=== PATIENT | female | born 1940 | race Native Hawaiian/Other Pacific Islander ===

== ENCOUNTER 2020-06-05 11:58 | Emergency (ER) | payer OTHER ==
[~2020-06-05] VITALS: Ht 142.2 cm; Wt 88.5 kg
[2020-06-05 13:57] LABS: URINE BILIRUBIN NEGATIVE (Negative); URINE BLOOD TRACE (Negative); URINE CLARITY CLEAR; URINE COLOR YELLOW; URINE GLUCOSE-RANDOM* NEGATIVE (Negative); URINE KETONES NEGATIVE (Negative); URINE LEUKOCYTES-REFLEX NEGATIVE (Negative); URINE NITRITE-REFLEX NEGATIVE (Negative); URINE PROTEIN (DIPSTICK) 2+ (Negative); URINE SPECIFIC GRAVITY 1.025 (1.005-1.035); URINE UROBILINOGEN 0.2 E.U./dl (0.2-1.0)
[2020-06-05 14:15] LABS: SQUAMOUS 0-3 Few /LPF (0-3)
[2020-06-05 14:16] LABS: BACTERIA-REFLEX None Seen /HPF (None Seen); CASTS None Seen /LPF (None Seen); CRYSTALS None Seen /LPF (None Seen); URINE RBC None Seen /HPF (0-2); URINE WBC-REFLEX 0-5 Rare /HPF (0-5)
[2020-06-05 15:49] LABS: HEMATOCRIT 42.1 % (37.0-47.0); HEMOGLOBIN 14.1 gm/dL (12.0-15.0); MCH 28.1 pg (26.0-34.0); MCHC 33.6 g/dL (28.0-37.0); MCV 83.8 fL (80.0-100.0); PLATELET COUNT 291 thou/uL (150-400); RBC 5.03 mil/uL (4.20-5.00); RDW 13.8 % (10.5-14.5); WBC 9.3 thou/uL (4.0-11.0)
[2020-06-05 16:01] LABS: CALCIUM 9.7 mg/dL (8.5-10.1)
[2020-06-05 16:17] LABS: ABSOLUTE NEUTROPHILS 5.8 thou/uL (1.4-8.2)
[2020-06-05] MEDS ORDERED: ULTRAM 50MG TAB50 MG PO (16:32)
[2020-06-05] MEDS ORDERED: MEDROLDOSEPACK PO (16:44)
[2020-06-05 17:15] VITALS: BP 183/73
== END 2020-06-05 17:16 | disposition home or self-care (01) ==
LOC: ER 11:58
PROVIDERS: Emergency Medicine
DX: M25.552 Pain in left hip (principal); M25.562 Pain in left knee; R39.12 Poor urinary stream; R60.0 Localized edema; Z88.8 Allergy status to other drugs, medicaments and biological substances